=== PATIENT | female | born 1990 | race Caucasian/White ===

== ENCOUNTER 2025-05-15 19:25 | Emergency (ER) | payer MEDICAID ==
[2025-05-15] MEDS ORDERED: DOXY-326 PO (22:28)
== END 2025-05-15 20:54 | disposition left against medical advice (07) ==
LOC: ER 19:28
DX: Z53.21 Procedure and treatment not carried out due to patient leaving prior to being seen by health care provider (principal)

== ENCOUNTER 2025-05-15 20:59 | Emergency (ER) | payer MEDICAID ==
[~2025-05-15] VITALS: Ht 154.9 cm; Wt 49.9 kg
[2025-05-15 21:36] VITALS: BP 120/64; TEMP 98.2; O2SAT 96
[2025-05-15] MEDS ORDERED: DOXY-326 PO (22:28)
== END 2025-05-15 22:38 | disposition home or self-care (01) ==
LOC: ER 21:05
DX: S30.860A Insect bite (nonvenomous) of lower back and pelvis, initial encounter (principal); Z91.048 Other nonmedicinal substance allergy status; W57.XXXA Bitten or stung by nonvenomous insect and other nonvenomous arthropods, initial encounter; Y93.89 Activity, other specified; Y92.89 Other specified places as the place of occurrence of the external cause; Y99.8 Other external cause status